=== PATIENT | male | born 1960 | race Caucasian/White ===

== ENCOUNTER 2018-05-05 07:33 | Inpatient (IN) ==
--- NOTE | 2018-05-04 21:10 | Discharge Summary ---
<Guilherme Farah - Last Filed: 05/05/18 08:46> Orders not resulted at time of discharge: Pending orders 05/05/18 00:01 XR shoulder complete LT [XR] Routine H/H [Hemoglobin and Hematocrit] [HEME] Routine 05/05/18 08:15 US anesthesia pain block [US] Routine Date of Encounter: 05/05/18 - Discharge Diagnosis (1) Rotator cuff arthropathy of left shoulder Status: Acute (2) Status post reverse arthroplasty of left shoulder Status: Acute (3) Hypertension Priority: Secondary Status: Chronic Qualifiers: Hypertension type: essential hypertension Qualified Code(s): I10 - Essential (primary) hypertension (4) Hyperlipidemia Priority: Secondary Status: Chronic Qualifiers: Hyperlipidemia type: unspecified Qualified Code(s): E78.5 - Hyperlipidemia , unspecified (5) Hepatitis C Priority: Secondary Status: Chronic Qualifiers: Viral hepatitis chronicity: unspecified Hepatic coma status: without hepatic coma Qualified Code(s): B19.20 - Unspecified viral hepatitis C without hepatic coma (6) Tobacco abuse Priority: Secondary Status: Chronic - Hospital Course Hospital course: Mr. Prasad is a 58 year old male - Time Spent with Patient Total time spent providing and/or coordinating discharge services: - Discharge Medications Home Medications: Daily Multivitamin Capsule 1 tab PO DAILY 04/15/18 [History] Ferrous Sulfate 325 mg PO DAILY 04/15/18 [History] Lisinopril 40 mg PO DAILY 04/15/18 [History] Methocarbamol [Robaxin-750] 750 mg PO QID PRN #16 tablet 04/15/18 [Rx] Nexium 40 mg PO DAILY 04/15/18 [History] amLODIPine 2.5 mg PO PRN PRN 04/15/18 [History] OxyCODONE Immed Rel [Roxicodone 5 MG] 5 mg PO Q6HR PRN 7 Days #28 tablet [Rx] Allergies/Adverse Reactions: 3 Allergy/AdvReac Type Severity Reaction Status Date / Time codeine Allergy Hives Verified 05/05/18 08:01 Penicillins Allergy Hives Verified 04/15/18 12:09 Primary care physician: Ventura French CNP - Patient Status Disposition: Home, Self-Care Condition: Good - Discharge Instructions Follow Up With: Ventura French CNP [Primary Care Provider] - <OraRoDorinda L - Last Filed: 05/05/18 15:56> Date of Encounter: 05/05/18 Time of Encounter: 15:51 - Discharge Diagnosis (1) Status post reverse arthroplasty of left shoulder Priority: Primary Status: Acute Comments: Opsite dressing, leave intact until first post-operative visit. Zipline in place , plan to remove at post-operative day #14-16. If dressing becomes >50% saturated, contact office, remove dressing and place appropriate dressing in its place. Do not allow for dressing to get wet. Shoulder Precautions x 6 weeks. Apply cold therapy wrap 3-6x/day for 20 minutes at a time. Encourage ambulation throughout the day. Use Incentive spirometer 10x/hour. Elevate affected extremity above heart as tolerated. NWB to affected upper extremity x 6 weeks. Pillow removed from brace before discharge. Will remove brace at first post- operative appointment. OK to remove during PT/OT and Home exercises. (2) Rotator cuff arthropathy of left shoulder Priority: Primary Status: Acute (3) Hepatitis C Priority: Secondary Status: Chronic Qualifiers: Viral hepatitis chronicity: unspecified Hepatic coma status: without hepatic coma Qualified Code(s): B19.20 - Unspecified viral hepatitis C without hepatic coma (4) Hyperlipidemia Priority: Secondary Status: Chronic Qualifiers: Hyperlipidemia type: unspecified Qualified Code(s): E78.5 - Hyperlipidemia , unspecified (5) Hypertension Priority: Secondary Status: Chronic Qualifiers: Hypertension type: essential hypertension Qualified Code(s): I10 - Essential (primary) hypertension (6) Tobacco abuse Priority: Secondary Status: Chronic - Hospital Course Hospital course: Mr. Prasad is a 58 year old male, ~status post Reverse Total Shoulder Replacement. Patient had uneventful postoperative course. Stable for discharge. Afebrile, vital signs stable. Vital Signs Temp Pulse Resp BP Pulse Ox 05/05/18 13:53 98.7 F 20 14 147/98 99 05/05/18 13:05 98.1 F 67 14 152/95 99 05/05/18 12:00 98.4 F 67 14 143/89 99 05/05/18 11:32 97.6 F 67 14 149/93 99 05/05/18 10:55 97.8 F 67 20 148/94 100 08/27/18 10:33 97.7 F 68 16 152/94 97 05/05/18 10:23 97.7 F 71 16 151/96 100 05/05/18 10:13 70 14 147/88 100 05/05/18 10:03 67 16 133/98 100 05/05/18 09:53 98.5 F 87 18 147/86 100 05/05/18 08:37 80 16 157/93 99 05/05/18 08:19 98.2 F 73 18 163/103 97 05/05/18 08:05 98.2 F 73 18 163/103 97 Intake and Output 05/04/18 05/05/18 05/05/18 23:59 07:59 15:59 Intake Total 170 / 170 Output Total 50 / 50 Balance 120 / 120 Intake: IV Fluids 50 / 50 Cleocin Premix 900 MG/50 ML 900 50 / 50 mg In 50 ml @ 100 mls/hr IVPB PREOP ONE Rx#:[id number] Oral 120 / 120 Output: Estimated Blood Loss 50 / 50 Other: Meal Lunch Percent of Meal Consumed 40% # Voids 1 Weight 82.554 kg 82.554 kg Patient Weight 05/05/18 23:59 Weight 82.554 kg Labs reviewed. H/H - stable, asymptomatic Short CBC 05/05/18 Range/Units 10:22 Hgb 14.9 (12.9-16.9) g/dL Hct 43.4 (37.5-50.1) % Pain control: adequate - Nerve block intact Shoulder exercises given in discharge packet. All questions and concerns addressed. Educated on use of incentive spirometer. Encouraged ambulation and proper hydration. Patient educated on post-operative restrictions and post-operative care. Assessment and plan: Continue with postoperative care Discharge plan: Home with outpatient PT @ [facility] 05/08 at 10:15AM, discharge today. - Time Spent with Patient Total time spent providing and/or coordinating discharge services: Primary care physician: Ventura French CNP - Patient Status Functional capacity at discharge: independent ambulation Overall status at discharge: patient is back to baseline - Diet and Activity Activity: as per physical therapy
--- NOTE | 2018-05-05 07:47 | Anesthesia Evaluation PreOp ---
Date of Encounter: 05/05/18 Time of Encounter: 07:54 - Past History Planned Operation: Left Total Shoulder Cardiac History: HTN, Hyperlipidemia Pulmonary History: Smoker (40+ years), Snore IMPREGNATING HELPER History: Denies Any Significant HX Other Medical History: Hepatic (hepatitis C), GERD Anesthesia History: No Prior Anesthetic Complications, Past Anesthesia Alcohol Use: rarely Drug use: none Medications and Allergies Ascorbate Calcium 04/15/18 [History] Daily Multivitamin Capsule 04/15/18 [History] Ferrous Sulfate 04/15/18 [History] Lisinopril 04/15/18 [History] Methocarbamol [Robaxin-750] 750 mg PO QID PRN #16 tablet 04/15/18 [Rx] Nexium 04/15/18 [History] amLODIPine 04/15/18 [History] OxyCODONE Immed Rel [Roxicodone 5 MG] 5 mg PO Q6HR PRN 7 Days #28 tablet [Rx] 3 Allergy/AdvReac Type Severity Reaction Status Date / Time codeine Allergy Hives Verified 05/05/18 08:01 Penicillins Allergy Hives Verified 04/15/18 12:09 - Meds/Allergy Pre-op Review Medications Reviewed: Yes Allergies Reviewed: Yes Beta Blockers on Current Med List: No Anesthesia Results - Labs Laboratory Tests 04/08/18 04/08/18 11:33 11:33 WBC 7.3 Hgb 14.7 Hct 44.5 Plt Count 220 Sodium 138 Potassium 4.2 BUN 6 L Creatinine 0.93 - Imaging EKG: report reviewed (09/30/2017 SR, marked LAD,) Additional studies: 11/29/2017 Echo Impressions: LVEF 60-65%. Normal LV chamber size, wall thickness and function. Indeterminate diastolic function. Normal right ventricular structure and function. No evidence of pulmonary hypertension. No significant valvular dysfunction. Anesthesia Exam O2 Sat Height 1.78 m Height 1.78 m Weight 82.554 kg Weight 82.554 kg O2 Sat by Pulse Oximetry 97 Vital Signs Temp Pulse Resp BP Pulse Ox 98.2 F 73 18 163/103 97 05/05/18 08:05 05/05/18 08:05 05/05/18 08:05 05/05/18 08:05 05/05/18 08:05 Height: 5'10" Weight: 184 lbs NPO (# of Hours): 8 Pain Scale: 0 Pain Scale Used: Numeric (1 - 10) - HEENT Pupil (Motor): EOMI Mallampati: II Teeth: Normal Oral Opening: Greater than 3 - IMPREGNATING HELPER LOC: Oriented IMPREGNATING HELPER Motor: Normal RUE, Normal LUE, Normal RLE, Normal LLE, Normal Face IMPREGNATING HELPER Sensory: Normal: RUE, LUE, RLE, LLE, Face - Cardiac Rhythm: Regular Murmur: None - Pulmonary Breath Sounds: bilateral Clear Respiratory Effort: Symmetrical Anesthesia Assess/Plan ASA Score: 2 Modified Yeso Scale for Level of Consciousness: Cooperative, oriented, and tranquil Anesthetic Plan: General, Regional Monitoring Plan: Standard Monitors Recovery Plan: PACU
[2018-05-05] MEDS ORDERED: Tetracaine/PF 20 MG/2 ML AMPUL ONE (07:55)
[2018-05-05] MEDS ORDERED: ROPIVACAINE HCL/PF 0.5% 30 ML VIAL ONE (07:55)
--- NOTE | 2018-05-05 07:55 | History & Physical Report ---
Date of Encounter: 05/05/18 Time of Encounter: 07:55 24 Hour HP Update - Instructions Instructions: If the History and Physical is less than 30 days old and was completed prior to A.M. admission and or procedure and has NOT been updated on calendar day of procedure please complete this update prior to performing procedure. - Update Patient reports changes in Medical Condition: No Changes in examination, assessment, or condition: No Changes in Medication: No Preop tests/diagnostics Reviewed: Yes Surgery Remains Indicated: Yes Consent for Planned Operative Procedure(s) Verified: Yes - Pre-Operative Checklist Preoperative Checklist Indicated: No Prophylactic Antibiotic Ordered: Yes Is VTE Prophylaxis Indicated?: Yes
[2018-05-05] MEDS ORDERED: Bupivacaine/Clonidine Syringe 1 EACH SYRINGE ONE (07:56)
[2018-05-05] MEDS ORDERED: Clindamycin 900 MG/50 ML 900 MG/50 ML IV.SOLN IVPB ONE (07:57)
[2018-05-05] MEDS ORDERED: Ringers Solution, Lactated 1,000 ML IVC SCH ×2 (08:00→11:06)
[2018-05-05] MEDS ORDERED: Albuterol 2.5 MG/3 ML NEBULIZER ONE (08:16)
[2018-05-05] MEDS ORDERED: *HR* FentaNYL (PF) 100 MCG/2 ML VIAL ONE (09:12)
[2018-05-05] MEDS ORDERED: Lidocaine -MPF 2% 2 ML VIAL ONE (09:12)
[2018-05-05] MEDS ORDERED: *HR* Midazolam HCl 2 MG/2 ML VIAL ONE (09:12)
[2018-05-05] MEDS ORDERED: *HR* Propofol 200 MG/20 ML VIAL IVP ONE (09:12)
--- NOTE | 2018-05-05 09:26 | Anesthesia Procedures ---
Date of Encounter: 05/05/18 Time of Encounter: 08:30 Procedures: Anesthesia - Nerve Block Procedure Date: 05/05/18 Time: 08:35 Allergies/Adv Reactions: Allergies codeine Allergy (Verified 05/05/18 08:01) Hives Penicillins Allergy (Verified 04/15/18 12:09) Hives Pre-op Diagnosis: left shoulder arthropathy Surgical Procedure: left total shoulder Checklist: Correct Patient Identifier, Correct procedure, History checked Correct side: Left Blood Thinner: No Monitor Applied: EKG, BP Supplemental Oxygen via Nasal Cannula (L/min): 2 Sedation: Versed (mg): 2 Sedation: Fentanyl (mcg): 50 Indication: Post Op Analgesia Pre-op Neuro Deficits: No Block Type: Supraclavicular, Other (superficial cervical and intercostal brachial) Catheter placed: No Sterile Technique: Yes Ultrasound used: Yes Anatomy identified: Yes Visual spread of Local: Yes Neuro Stimulation: No Blood on Needle Aspiration: No Smooth Injection of Local: Yes Pain with Injection of Local: No Prep: Chlorhexadine Needle: 22 x 50 mm Stimuplex Local: 0.25% Bupivicaine w/Clonidine 20 mcg/cc, Ropivacaine (and tetracaine) Volume (cc): 38ml Number of Attempts: 1 Complications: None/effective block Vitals: Vital Signs Vital Signs Assessment Start: 05/05/18 08:15 Freq: CONT Status: Active Protocol: Activity Type Activity Date Activity User E-Sign Co-Sign Detail Recorded Client Recorded Date Recorded By Created 05/05/18 08:15 RTL [email or web address] 05/05/18 08:15 BKG DAEMON Temp Pulse Resp BP Pulse Ox 05/05/18 08:37 80 16 157/93 99 05/05/18 08:19 98.2 F 73 18 163/103 97 05/05/18 08:05 98.2 F 73 18 163/103 97 Comments: see nurses documentation for vitals
[2018-05-05] MEDS ORDERED: EPHEDrine 50 MG/ML VIAL ONE (09:27)
[2018-05-05] MEDS ORDERED: *HR* FentaNYL (PF) 100 MCG/2 ML VIAL IVP PRN (09:29)
[2018-05-05] MEDS ORDERED: *HR* HYDROmorphone 2 MG TABLET PO PRN (09:29)
[2018-05-05] MEDS ORDERED: Ondansetron 4 MG/2 ML VIAL IVP ONE (09:29)
[2018-05-05] MEDS ORDERED: Ketorolac 30 MG/ML VIAL ONE (09:32)
--- NOTE | 2018-05-05 09:36 | Orthopedic Operative Note ---
Date of procedure: 05/05/18 Pre-op diagnosis: Left shoulder cuff tear arthropathy Post-op diagnosis: same Procedure: Procedure: Total Shoulder Replacment Reverse, biceps tenodesis Estimated blood loss: 50 cc Hardware: Metal and polyethylene replacement: Arthrex 28+2 with 30 mm post glenoid baseplate, 2 4.5 screws. 2 5.5 locking screw, 42+4 glenosphere, 8 humeral stem, poly insert 6 Exam Under anesthesia: Full motion no instability Irreparable tear supraspinatus tendon. Procedural Notes: Operative procedure: The patient was brought to the operating room and placed on the operating room table. After general anesthesia was administered the operative shoulder was examined. Findings were noted. The patient was placed in the modified beachchair position. All pressure points were padded appropriately. And the head was stabilized in the neutral position. The operative extremity was prepped and draped in the sterile surgical fashion. The patient received IV antibiotics prior to skin incision. A standard deltopectoral approach was made to the operative shoulder. Incision was made to the skin and subcutaneous tissue,hemo stasis was obtained with Bovie cautery. Using careful blunt dissection the cephalic vein was identified and mobilized medially. The deltopectoral interval was developed and the clavipectoral fascia was incised. The subscap was released off the lesser tuberosity and tagged with #2 FiberWire suture subscap was irreparable. The humerus was dislocated patient noted to have irreparable tear supraspinatus tendon, and the humeral cut was made along the anatomic neck. Anterior and posterior Bankart retractors were placed to expose the glenoid. The glenoid guide was seated and the centering hole was made. It was reamed with the appropriate reamer. 28+2 baseplate with 30 mm was seated and secured with (2) 4.5 screws and 2 5.5 screw. The baseplate was irrigated and dried and the 42+4 Glenosphere was seated and secured with the Chambers taper. The Chambers taper was tested and found to be secure the humerus was redislocated and prepared with the diaphyseal reamers, followed by a broaching process up to the appropriate size 8 in the patient's anatomic version. The metaphyseal reamer was then utilized. Trial reduction found the shoulder to be relocatable. Trial components were removed and the 8 stem was impacted in place in the patient's anatomic version. Trial reduction found the shoulder to be relocatable and stable with the appropriate 6 Fariha Trial component was removed and the real implant was seated and secured the shoulder was reduced. The shoulder had excellent motion and excellent stability and no evidence of dislocation. The deep tissue was irrigated with pulse irrigation. The PA close the shoulder. The deltopectoral interval was closed with a running #1 PDS suture, subcutaneous tissue was irrigated and closed with 0 PDS suture, the skin was closed with Dermabond. The patient was placed in a sterile dressing, abduction brace and extubated. The patient was then transferred to the recovery room in stable condition. Anesthesia: GETA Surgeon: Guilherme Farah Was there an optometry assistant present: Yes Auto Rental Supervisor: Dorinda Payan Estimated blood loss (cc): 50 Condition: stable Disposition: PACU
[2018-05-05 10:34] LABS: Hematocrit 43.4 % (37.5-50.1); Hemoglobin 14.9 g/dL (12.9-16.9)
--- NOTE | 2018-05-05 10:37 | Anesthesia Evaluation Post Op ---
Date of Encounter: 05/05/18 Time of Encounter: 10:36 - Vital Signs Vital Signs: Vital Signs/O2 Sat, Most Current Temp Pulse Resp BP Pulse Ox 97.7 F 68 16 152/94 97 05/05/18 10:33 05/05/18 10:33 05/05/18 10:33 05/05/18 10:33 05/05/18 10:33 - Lungs Lungs: Clear Ascult./Percussion - Airway Airway: Non-obstructed - Cardiovascular Regular Rate - Mental Status Mental Status: Alert & Oriented, Answers Appropriately - Pain Pain Scale: 0 Pain Scale used: Numeric (1 - 10) - Nausea Vomiting Nausea Vomiting: Not Present - Hydration Hydration: Ice chips, Has not voided - Discharge PostOp Status: Transfer Patient to floor
[2018-05-05] MEDS ORDERED: Temazepam 15 MG CAPSULE PO PRN (11:06)
[2018-05-05] MEDS ORDERED: traMADol 50 MG TABLET PO PRN (11:06)
[2018-05-05] MEDS ORDERED: Ondansetron 4 MG/2 ML VIAL IVP PRN (11:06)
[2018-05-05] MEDS ORDERED: Naloxone 0.4 MG/ML INJ IVP PRN (11:06)
[2018-05-05] MEDS ORDERED: *HR* OxyCODONE Immed Rel 5 MG TABLET PO PRN (11:06)
[2018-05-05] MEDS ORDERED: *HR* OxyCODONE/APAP 5/325 TABLET PO PRN (11:06)
[2018-05-05] MEDS ORDERED: Sennosides 8.6 MG TABLET PO PRN (11:06)
[2018-05-05] MEDS ORDERED: MOM Conc 10 ML UD.LIQ PO PRN (11:06)
[2018-05-05] MEDS ORDERED: Lisinopril 20 MG TABLET PO SCH (11:06)
[2018-05-05] MEDS ORDERED: amLODIPine 5 MG TABLET PO PRN (11:33)
[2018-05-05] MEDS ORDERED: Ondansetron 4 MG/2 ML VIAL ONE (13:22)
[2018-05-05] MEDS ORDERED: Dexamethasone 4 MG/ML VIAL ONE (13:22)
[2018-05-05 13:53] VITALS: BP 147/98
[2018-05-05] MEDS ORDERED: *HR* Enoxaparin 30 MG/0.3 ML SYRINGE SQ SCH ×3 (16:00→18:00)
[2018-05-05] MEDS ORDERED: Clindamycin 900 MG/50 ML 900 MG/50 ML IV.SOLN IVPB SCH (16:00)
== END 2018-05-05 16:45 | disposition home or self-care (01) | DRG 483 ==
LOC: SAMDAY 07:33 → 3NENU 10:35
PROVIDERS: ADMIT Orthopaedic Surgery; ATTEND Orthopaedic Surgery